=== PATIENT | male | born 1965 | race Caucasian/White ===

== ENCOUNTER → 2021-03-29 | Outpatient (CLI) | payer OTHER ==
--- NOTE | 2021-03-29 15:32 | REPVR ---
PROCEDURE INFORMATION: Exam: MR Lumbar Spine Without Contrast Exam date and time: 03/29/2021 2:47 PM Age: 55 years old Clinical indication: Low back pain; Patient HX: Lbp TECHNIQUE: Imaging protocol: Multiplanar magnetic resonance images of the lumbar spine without intravenous contrast. COMPARISON: No relevant prior studies available. FINDINGS: Vertebrae: Mild levoscoliosis. Otherwise,The lumbar vertebral bodies are normal in height,signal intensity and alignment.No acute fracture or dislocation is seen. Spinal epidural space: There is no evidence of epidural masses or hemorrhage. Spinal cord: The conus medullaris is normal. The cauda equina nerve roots demonstrate no crowding or displacement. L1-L2: There is no significant degenerative disc herniation.The spinal canal and neural foramina are patent and without significant stenosis. L2-L3: Moderately reduced in height and T2 signal indicating degeneration. Small diffuse posterior herniation. Mild facet arthropathy.There is no evidence of spinal canal narrowing. There is mild bilateral foraminal stenosis. L3-L4: Markedly reduced in height and T2 signal indicating degeneration. Prominent marginal anterior osteophytes. Moderate degenerative endplate changes. Small diffuse posterior herniation. Mild facet arthropathy.There is mild spinal canal narrowing, with an AP canal dimension of 10 mm. There is mild left foraminal stenosis. There is severe right foraminal stenosis. There is compression on the right exiting nerve root. L4-L5: Moderately reduced in height and T2 signal indicating degeneration. Small diffuse posterior herniation. Moderate facet arthropathy.There is mild spinal canal narrowing, with an AP canal dimension of 10 mm. There is mild bilateral foraminal stenosis. L5-S1: Tiny posterior central protrusion. Mild facet arthropathy.The spinal canal and neural foramina are patent and without significant stenosis. Soft tissues: The prevertebral soft tissues appear normal. IMPRESSION: MRI of the lumbar spine reveals multilevel degenerative spondylitic changes and degenerative disc disease as described above. Electronically signed by: Hernando Zazueta On 03/29/2021 15:31:58 PM
== END ==
LOC: M PLARAD 13:42
PROVIDERS: ATTEND Internal Medicine
DX: M54.5 Low back pain (principal)

== ENCOUNTER → 2021-05-29 | Outpatient (CLI) | payer OTHER ==
--- NOTE | 2021-05-29 19:30 | REP ---
INDICATION: UNSPEC INTERNAL DERENAGEMENT LT KNEE. COMPARISON: X-ray 03/01/2021 weight-bearing TECHNIQUE: Axial fat-suppressed T2 with coronal and sagittal PD and fat suppressed T2 sequences. FINDINGS: With the ACL and PCL are intact. There are transverse meniscal ligaments of Mclaughlin and Wrisberg visible on this exam. There is some fluid in the intercondylar notch and small volume. Of the medial meniscus shows oblique grade 3 signal extending in the posterior horn from its posterior margin to the inferior articular surface representing a grade 3 tear. Anterior horn was unremarkable. I do not see a displaced or free meniscal fragment edema posterior to the posterior horn and deep to the capsule. There is a small popliteal fossa cyst or fluid collection about the medial head of the gastrocnemius. There is some strain in the MCL without a complete tear. The right-sided medial patellar retinaculum shows some mild attenuation but no gross tear. Lateral meniscus shows no evidence of a tear. There is no loose body in the lateral compartment. There is some grade 1-2 chondromalacia in the medial compartment and grade 1 in the lateral compartment on the tibial plateau. I do not see an osteochondral defect or subchondral edema/cyst in either compartment. LCL intact. Lateral patellar retinaculum is intact. There is chondromalacia patella with grade 2 changes medial facet and grade 1 changes lateral facet and at the trochlear groove. There is a suprapatellar effusion evident along with suprapatellar plica laterally. Fluid extends into the bursal recess is adjacent the medial great much greater than lateral femoral condyles as well as into the intercondylar notch. Quadriceps and patellar tendons are intact. There is some mild edema in the prepatellar subcutaneous fat. No bone bruise or fracture of the distal femur, proximal tibia or fibula. Proximal tibiofibular articulation is preserved. Popliteus tendon is seen. IMPRESSION: 1. Tricompartment chondromalacia with small joint effusion. No evidence of cruciate ligament or lateral meniscal tear. 2. Grade 3 signal tear obliquely in the posterior horn medial meniscus extending to its inferior articular surface and without a loose body in the medial or lateral compartment, bone bruise or fracture. Chondromalacia is most severe in the medial compartment with the grade 2 changes diffusely. 3. Extensor mechanism shows quadriceps and patellar tendons intact. There is some mild strain of the medial patellofemoral retinaculum while the lateral retinaculum grossly intact. 4. MCL strain and a small popliteal fossa cyst behind the medial femoral condyle, no tear of the MCL. The LCL and lateral patellar retinaculum are intact <Electronically signed by Salvador Rubi > 05/29/[id number]
== END ==
LOC: M RAD 17:51
PROVIDERS: ATTEND Orthopaedic Surgery Adult Reconstructive Orthopaedic Surgery
DX: M23.92 Unspecified internal derangement of left knee (principal)